=== PATIENT | male | born 1970 | race Caucasian/White ===

== ENCOUNTER → 2017-09-07 | Outpatient (CLI) | payer BC ==
--- NOTE | 2017-09-08 11:48 | MR ---
EXAMINATION TYPE: MR shoulder RT wo con DATE OF EXAM: 09/07/2017 COMPARISON: NONE HISTORY: Right shoulder pain, no known injury TECHNIQUE: Multiplanar, multisequence imaging of the right shoulder is performed without contrast. FINDINGS: Rotator Cuff: There is increased intrasubstance signal involving the distal margin of the infraspinat us and supraspinatus tendon compatible tendinosis. No through thickness tear or retraction. Acromioclavicular Joint: AC joint is maintained. There is a type II acromion. Very mild mass effect u ya the supraspinatus tendon. Glenohumeral Joint: Joint spaces preserved. Glenohumeral ligaments intact. Labrum: The labrum appears grossly intact given limitation of non-arthrogram study. Biceps Tendon: The long head of biceps is in normal location within bicipital groove. Bone marrow signal: No focal abnormal marrow signal is appreciated. IMPRESSION: Supraspinatus and infraspinatus distal tendinosis. No through thickness tear or retraction.
== END | disposition home or self-care (01) ==
LOC: RADMRIMAIN 20:57
PROVIDERS: ATTEND Orthopaedic Surgery
DX: M75.81 Other shoulder lesions, right shoulder (principal)

== ENCOUNTER → 2018-03-28 | Outpatient (CLI) | payer BC ==
[2018-03-28 09:55] LABS: Basophils % (A) 0 %; Eosinophils # (A) 0.1 k/uL (0-0.7); Eosinophils % (A) 1 %; HCT 45.8 % (39.0-53.0); HGB 15.9 gm/dL (13.0-17.5); Lymphocytes # (A) 2.2 k/uL (1.0-4.8); Lymphocytes % (A) 25 %; MCH 30.5 pg (25.0-35.0); MCHC 34.7 g/dL (31.0-37.0); Mean Platelet Volume 6.4; Monocytes # (A) 0.5 k/uL (0-1.0); Monocytes % (A) 6 %; Neutrophils # (A) 5.7 k/uL (1.3-7.7); Neutrophils % (A) 65 %; Platelet Count 269 k/uL (150-450); RDW 13.7 % (11.5-15.5); WBC 8.7 k/uL (3.8-10.6)
[2018-03-28 10:08] LABS: Potassium 4.3 mmol/L (3.5-5.1)
== END | disposition home or self-care (01) ==
LOC: LABPAT 09:07
PROVIDERS: ATTEND Orthopaedic Surgery
DX: Z01.812 Encounter for preprocedural laboratory examination (principal); M75.41 Impingement syndrome of right shoulder
CPT/HCPCS: 36415; 80051; 85025

== ENCOUNTER 2018-04-03 06:14 | Day surgery (SDC) | payer BC ==
[2018-03-28 14:14] VITALS: BMI 20.9
--- NOTE | 2018-04-02 14:33 | HP ---
HISTORY AND PHYSICAL DATE OF SERVICE: 04/03/2018 Jagdeep Washington is a 48-year-old patient seen with progressive right shoulder pain. We discussed treatment options with him. He elected to proceed with arthroscopy. Consent regarding the procedure was obtained. PAST MEDICAL HISTORY: Depression. PAST SURGICAL HISTORY: Noncontributory. DAILY MEDICATIONS: Zoloft, ibuprofen. ALLERGIES: None reported. SOCIAL HISTORY: Smokes 1 pack cigarettes daily. PHYSICAL EXAMINATION: Evaluation right shoulder flexion 160 degrees, abduction 40 degrees external rotation 70 degrees with good strength. Tenderness along the anterolateral acromion rotator cuff insertion site. His impingement sign is positive at 110 degrees. His distal neurovascular exam is intact. 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 A right shoulder MRI revealed partial rotator cuff tear and bicipital tendinitis. IMPRESSION: Right shoulder impingement with rotator cuff tear and acromioclavicular joint osteoarthritis. PLAN: Right shoulder arthroscopy with subacromial decompression, possible arthroscopic rotator cuff repair, possible Karine procedure and debridement. MMODL / IJN: [id number] /
[~2018-04-03 06:14] MED LIST: DEXAMETHASONE SOD PHOSPHATE 10 MG/ML 1 ML VIAL IV ONE; HYDROmorphone 0.5 MG/0.5 ML SYRINGE IVP PRN; LACTATED RINGERS 1,000 ML IV SCH; LIDOCAINE 1% 20 ML VIAL (10MG/ML) FOR IV START INTRADERMA PRN; MIDAZOLAM 2 MG/2 ML VIAL IV PRN; ONDANSETRON 4 MG/2 ML VIAL IVP ONE; SCOPOLAMINE 1.5MG/72HR PATCH TRANSDERM ONE; ceFAZolin 1,000 MG in DEXTROSE/WATER 1 50ML.BAG IV ONE
[2018-04-03] MEDS ORDERED: fentaNYL (PF) 50 MCG/ML 2 ML AMP IV ONE (07:23)
--- NOTE | 2018-04-03 07:31 | P.ONQ ---
Anesthesiology Proc Note - PNB - Peripheral Nerve Block Performed Right Interscalene Single Time Out Performed: Yes Procedure Start Time: Procedure Stop Time: Indication: Acute Post-Operative Pain, Requested by physician (Dr Dwyer) Sedation Type: Sedate with meaningful contact maintained Preparation: Sterile Prep Position: Supine Catheter: None Needle Types: Facet Needle Size: 50mm (2") Needle Gauge: 21 Technique: Ultrasound (Image saved) Injectate: 0.5% Ropivacaine (see comment for volume) (30 ml) Blood Aspirated: No Pain Paresthesia on Injection Noted: No Resistance on Injection: Normal Events: Uneventful and Well Tolerated
[2018-04-03] MEDS ORDERED: SUCCINYLCHOLINE CHLORIDE 100 MG/5 ML SYR IV ONE (08:00)
[2018-04-03] MEDS ORDERED: ONDANSETRON 4 MG/2 ML VIAL ONE (08:00)
[2018-04-03] MEDS ORDERED: PROPOFOL 10 MG/ML 20 ML VIAL IV ONE (08:00)
[2018-04-03] MEDS ORDERED: NEOSTIGMINE 1 MG/ML 10 ML VIAL ONE (08:00)
[2018-04-03] MEDS ORDERED: GLYCOPYRROLATE 0.2 MG/ML 2 ML VIAL ONE (08:00)
[2018-04-03] MEDS ORDERED: ROPIVACAINE 5 MG/ML 30 ML VIAL ONE (08:00)
[2018-04-03] MEDS ORDERED: ROCURONIUM BROMIDE 10 MG/ML 10 ML VIAL IV ONE (08:00)
[2018-04-03] MEDS ORDERED: ePHEDrine SULFATE/0.9% NACL/PF 50 MG/5 ML SYRINGE IV ONE (08:00)
[2018-04-03] MEDS ORDERED: LIDOCAINE 1% INJ 10MG/ML (20 ML MDV) ONE (08:00)
[2018-04-03 09:47] VITALS: TEMP 97.2
--- NOTE | 2018-04-03 09:53 | P.OP ---
Date of Procedure: 04/03/18 Preoperative Diagnosis: Right shoulder impingement Postoperative Diagnosis: 1. Right shoulder rotator cuff tear 2. Right shoulder impingement 3. Right shoulder acromioclavicular joint osteoarthritis 4. Right shoulder partial long head biceps tendon tear Procedure(s) Performed: 1. Right shoulder arthroscopic rotator cuff repair 2. Right shoulder arthroscopic subacromial decompression 3. Right shoulder arthroscopic Karine procedure 4. Right shoulder arthroscopic biceps tenotomy Implants: 25.5 Arthrex swivel lock anchors Anesthesia: GETA, regional (Interscalene block) Surgeon: Mihir Dwyer [employer] Teacher #1: Galileo Schultz Estimated Blood Loss (ml): 10 Pathology: none sent Condition: stable Disposition: PACU Indications for Procedure: 48-year-old patient seen with progressive right shoulder pain. After treatment options were discussed, he elected to proceed with arthroscopy. Operative Findings: see description of procedure Description of Procedure: Patient underwent an interscalene block by department of anesthesia. The patient was then taken to the operative suite. The patient underwent a general anesthetic by the department of anesthesia. The patient was placed into a lateral position and secured. There was appropriate padding of the bony prominence. Right shoulder was then prepped and draped in normal sterile orthopedic fashion. We placed the extremity in 10 pounds of longitudinal traction. A posterior incision was now made for a posterior working portal site. The trocar and cannula were inserted into the glenohumeral joint. Arthroscopy was initiated. Spinal needle was now inserted anteriorly, to ascertain the anterior working portal site. An incision was now made in that area, a trocar was inserted followed by a probe. There was fraying of the superior labrum. There was some hyperemia and partial tearing long head biceps tendon. The remaining labrum appeared intact. There was no significant chondromalacia. I debrided the frayed edges. I performed arthroscopic biceps tenotomy. The residual labrum was probed and found to be stable. Instruments were now removed from glenohumeral joint. Utilizing the posterior working portal site, the trocar and cannula were inserted into the subacromial space. Arthroscopy initiated. I made an incision 2 fingerbreadths lateral to the acromion. I introduced my trocar followed by my ArthroCare ablator. I now began ablating thick subacromial bursal tissue, which exposed the undersurface of the anterior acromion. There was diminished subacromial space. There was a very prominent anterior acromion. A motorized bur was introduced and a subacromial decompression was performed. I also excised some osteophytes off the inferior aspect of the distal clavicle. The AC joint was visualized and noted to be fairly arthritic. The motorized bur was introduced in the anterior portal site and a Karine procedure was performed without difficulty, decompressing the AC joint nicely. I turned my attention to the rotator cuff. There was some partial tearing of rotator cuff tendon along the distal supraspinous area. Upon probing that area did find a full-thickness perforation. I debrided that getting down to stable tendon tissue. I had a 1 1 0.5 cm defect. We had stable rotator cuff tendon tissue around that area. I abraded the footprint with a motorized bur. I now passed 2 everted mattress sutures getting good bites of rotator cuff tendon tissue. I now punched a hole at the footprint area for repair. I then passed the sutures through the anchor eyelet and introduced the anchor eyelet into our pre-punch hole. I held in position while Darrell WYNN tension the sutures and introduced anchor. There was one area of dog ear posteriorly. I now passed additional sutures through that and initial anchor was inserted anterior laterally to compress that area of tendon along the footprint as well. All residual suture limbs were now clipped. We had good compression of the tendon along the entire footprint. I injected 1 mL Renue intra-articular. Instruments now removed from the portal sites. All portal sites were approximated with nylon suture. Sterile dressings were applied followed by a shoulder sling. Galileo WYNN assisted in this complex case. The patient was awakened, transferred to a bed, and taken to recovery in stable condition.
[2018-04-03] MEDS ORDERED: MEPERIDINE 50 MG/ML SYRINGE IVP ONE (09:56)
[2018-04-03 10:47] VITALS: BP 148/89; PULSE 82; RESP 18
== END 2018-04-03 11:30 | disposition home or self-care (01) ==
LOC: OR 06:14
PROVIDERS: ATTEND Orthopaedic Surgery
DX: M75.101 Unspecified rotator cuff tear or rupture of right shoulder, not specified as traumatic (principal); M75.41 Impingement syndrome of right shoulder; M19.011 Primary osteoarthritis, right shoulder; S46.111A Strain of muscle, fascia and tendon of long head of biceps, right arm, initial encounter; X58.XXXA Exposure to other specified factors, initial encounter; M25.711 Osteophyte, right shoulder; F32.9 Major depressive disorder, single episode, unspecified; F17.210 Nicotine dependence, cigarettes, uncomplicated; I10 Essential (primary) hypertension; J45.909 Unspecified asthma, uncomplicated; Z79.1 Long term (current) use of non-steroidal anti-inflammatories (NSAID); Z79.899 Other long term (current) drug therapy
CPT/HCPCS: 64415; 29826; 29827; 29824; C1713 ×3; J2250; J1100; J2710; J2175; J2405; J2001; J3010; J0690; J2795; J0330; J2704